=== PATIENT | male | born 1980 | race American Indian/Alaskan Native ===

== ENCOUNTER 2019-05-06 13:26 | Emergency (ER) | payer MEDICARE, OTHER ==
--- NOTE | 2019-05-06 13:32 | Event Note ---
ED Screening Note Date of service: 05/06/19 Time: 13:30 ED Screening Note: 38 y o male returns to Er for evaluation of his necka nd spine pain states medicines he was given is not helping This initial assessment/diagnostic orders/clinical plan/treatment(s) is/are subject to change based on patients health status, clinical progression and re- assessment by fellow clinical providers in the ED. Further treatment and workup at subsequent clinical providers discretion. Patient/guardian urged not to elope from the ED as their condition may be serious if not clinically assessed and managed. Initial orders include: ACC eval
[2019-05-06 13:33] VITALS: BP 127/87
[2019-05-06] MEDS ORDERED: ULTRAM PO ONE (13:53)
--- NOTE | 2019-05-06 13:55 | Emergency Department Report ---
ED Neck Pain/Injury HPI - General Chief Complaint: Back Pain/Injury Stated Complaint: BACK/SPINE PAIN Time Seen by Provider: 05/06/19 13:29 Mode of arrival: Ambulatory Limitations: No Limitations - History of Present Illness Initial Comments: Patient is a 38-year-old male who presents the emergency room with complaints of chronic neck pain that radiates to his upper back that began causing him increased pain about a month ago. He states he has had this pain since an injury in 2005 where he had spondylosis per patient. Denies any new fall or injury. He was seen on 04/[address] of the L-spine and x-ray of the cervical spine with no acute findings. He was given prescriptions for Toradol and Robaxin. He has not followed up and has taken all the medication and is b ack because he is in pain again. He denies any numbness, weakness, bowel or bladder incontinence, urinary retention, fever. He denies any other past medical history or allergies to medications. - Related Data Previous Rx's Medication Instructions Recorded Last Taken Type Ketorolac [Toradol] 10 mg PO Q6H PRN #12 tablet 04/27/19 Unknown Rx methOCARBAMOL [Robaxin TAB] 500 mg PO Q6H PRN #14 tablet 04/27/19 Unknown Rx Allergies Allergy/AdvReac Type Severity Reaction Status Date / Time No Known Allergies Allergy Unverified 04/26/19 22:07 ED Review of Systems ROS: Stated complaint: BACK/SPINE PAIN Other details as noted in HPI Comment: All other systems reviewed and negative ED Past Medical Hx - Past Medical History Previous Medical History?: No - Surgical History Past Surgical History?: No - Social History Smoking Status: Never Smoker Substance Use Type: None - Medications Home Medications: Home Medications Medication Instructions Recorded Confirmed Last Taken Type Ketorolac [Toradol] 10 mg PO Q6H PRN #12 tablet 04/27/19 Unknown Rx methOCARBAMOL [Robaxin TAB] 500 mg PO Q6H PRN #14 tablet 04/27/19 Unknown Rx ED Physical Exam - General Limitations: No Limitations General appearance: alert, other (appears to be in some discomfort, otherwise no distress) - Head Head exam: Present: atraumatic, normocephalic - Eye Eye exam: Present: normal appearance - ENT ENT exam: Present: mucous membranes moist - Neck Neck exam: Present: normal inspection, tenderness (bilateral paraspinal C-spine TTP, no midline C-spine tenderness, no step offs no deformities), full ROM - Respiratory Respiratory exam: Present: normal lung sounds bilaterally. Absent: respiratory distress, wheezes, rales, rhonchi, stridor, chest wall tenderness, accessory muscle use, decreased breath sounds, prolonged expiratory - Cardiovascular Cardiovascular Exam: Present: regular rate, normal rhythm, normal heart sounds. Absent: systolic murmur, diastolic murmur, rubs, gallop - Back Exam Back exam: Present: normal inspection, full ROM, paraspinal tenderness (TTP to the bilateral T-spine paraspinal muscular region, no midline T-spine or L-spine tenderness, no step offs, no deformities ), other. Absent: vertebral tenderness - Neurological Exam Neurological exam: Present: alert, oriented X3, CN II-XII intact, normal gait. Absent: motor sensory deficit - Psychiatric Psychiatric exam: Present: normal affect, normal mood - Skin Skin exam: Present: warm, dry, intact ED Course Vital Signs 05/06/19 05/06/19 13:31 14:09 Temperature 97.8 F Pulse Rate 88 Respiratory 18 15 Rate Blood Pressure 127/87 O2 Sat by Pulse 99 Oximetry ED Medical Decision Making - Medical Decision Making Patient is a 38-year-old male who presents the emergency room with complaints of chronic neck pain that radiates to his upper back that began causing him increased pain about a month ago. He states he has had this pain since an injury in 2005 where he had spondylosis per patient. Denies any new fall or injury. He was seen on 04/[address] of the L-spine and x-ray of the cervical spine with no acute findings. He was given prescriptions for Toradol and Robaxin. He has not followed up and has taken all the medication and is back because he is in pain again. He denies any numbness, weakness, bowel or bladder incontinence, urinary retention, fever. He denies any other past medical history or allergies to medications. vitals are normal. on exam: bilateral paraspinal C-spine TTP, no midline C-spine tenderness, no step offs no deformities, TTP to the bilateral T-spine paraspinal muscular region, no midline T-spine or L-spine tenderness, no step offs, no deformities no focal neuro deficit. pts discomfort treated while in the ED. advised pt that he would need to follow up with an orthopedic for his chronic pain. discussed with pt to please use heat, ice, rest, epsom salt bath, and stretching exercises. may take tylenol or ibuprofen for discomfort. please follow up with a primary care doctor and orthopedic doctor in the next 2-3 days. return to the emergency room for any new or worsening symptoms. Critical care attestation.: If time is entered above; I have spent that time in minutes in the direct care of this critically ill patient, excluding procedure time. ED Disposition Clinical Impression: Cervical radiculopathy, Musculoskeletal pain Disposition: TO HOME OR SELFCARE Is pt being admited?: No Does the pt Need Aspirin: No Condition: Stable Instructions: Cervical Radiculopathy (ED) Additional Instructions: please use heat, ice, rest, epsom salt bath, and stretching exercises. may take tylenol or ibuprofen for discomfort. please follow up with a primary care doctor and orthopedic doctor in the next 2-3 days. return to the emergency room for any new or worsening symptoms. Referrals: [facility] [Provider Group] - 2-3 Days REYNA GRESHAM MD [Staff Physician] - 2-3 Days [facility] [Provider Group] - 2-3 Days Time of Disposition: 13:56 Print Language: [place]
== END 2019-05-06 14:18 | disposition home or self-care (01) ==
LOC: ED 13:26
DX: M54.12 Radiculopathy, cervical region (principal); M54.5 Low back pain; Z79.899 Other long term (current) drug therapy